=== PATIENT | male | born 1955 | race Caucasian/White ===

== ENCOUNTER 2019-10-23 06:07 | Day surgery (SDC) | payer MEDICARE, OTHER ==
[~2019-10-23 06:07] MED LIST: Dextrose 5%-0.45% NaCl 1,000 ML IV SCH; Sodium Chloride 0.9% 10 ML Syringe FLUSH PRN
[2019-10-23] MEDS ORDERED: Midazolam 1 MG/ML 2 ML SDV IV ONE ×7 (06:08→07:14)
[2019-10-23] MEDS ORDERED: fentaNYL 100 MCG/2 ML SDV IV ONE ×4 (06:08→07:16)
[2019-10-23] MEDS ORDERED: Midazolam 1 MG/ML 2 ML SDV ONE (06:38)
[2019-10-23] MEDS ORDERED: fentaNYL 100 MCG/2 ML SDV ONE (06:39)
--- NOTE | 2019-10-23 08:18 | OR ---
DATE: 10/23/2019 PROCEDURE: Total colonoscopy and multiple cold snare polypectomies. INSTRUMENT USED: PCF-H190DL Olympus video colonoscope. PREMEDICATIONS: Fentanyl 125 mcg intravenous, Versed 4 mg intravenous, nasal O2 cannula. The procedure was done under pulse oximetry, BP recording, and fish warden. INDICATION: The patient with previous colonic tubular adenoma. Surveillance colonoscopic examination is done for detection of any polypoid lesions and removal, endoscopic hemostasis therapy if needed. DESCRIPTION OF PROCEDURE: Initial rectal exam was unremarkable. Rigid anoscopy showed small internal hemorrhoids without bleeding form them. The colonoscope was passed with ease up to the ileocecal area. Photographs were taken of the cecum showing diminutive benign-appearing polyp, cold snare polypectomy was done, the tissue was retrieved and sent for histopathology. No bleeding was noted from any of the visualized areas at the commencement of the examination. The bowel preparation was found to be adequate, Sarah Ann scale 3 in all the regions, total score 9. No stricture. No vascular ectasia. No large isolated ulcerations seen. No evidence of diffuse inflammatory bowel disease in the form of friability, contact bleeding, or ulcerations. Probing the proximal sides of folds and flexures using adequate distention and clearing up the stool material, withdrawal of the scope was made. In the distal descending colon, 3 mm sized benign-appearing polyp was noted, cold snare polypectomy was done, the tissue was retrieved and sent for histopathology. No bleeding was noted from any of the visualized areas at the completion of examination. IMPRESSION: Diminutive colonic polyps. The patient tolerated the procedure well. [facility] /[id number]
== END 2019-10-23 09:40 | disposition home or self-care (01) ==
LOC: DL.ENDO 06:07
PROVIDERS: ATTEND Internal Medicine Gastroenterology
DX: Z12.11 Encounter for screening for malignant neoplasm of colon (principal); D12.4 Benign neoplasm of descending colon; D12.0 Benign neoplasm of cecum
CPT/HCPCS: 45385; J2250; J3010; J7042

== ENCOUNTER 2024-06-12 07:25 | Day surgery (SDC) | payer MEDICARE ==
[~2024-06-12 07:25] MED LIST changes: +Dexamethasone 4 MG/ML SDV ONE; -Dextrose 5%-0.45% NaCl 1,000 ML IV SCH; +Proparacaine 0.5% Ophth Soln 15 ML Bottle ONE; -Sodium Chloride 0.9% 10 ML Syringe FLUSH PRN
[2024-06-12] MEDS ORDERED: Ondansetron 4 MG/2 ML SDV IVPUSH PRN (07:30)
[2024-06-12] MEDS ORDERED: Acetaminophen 325 MG Tab PO PRN (07:30)
[2024-06-12] MEDS ORDERED: Acetaminophen/Codeine 300-30 MG Tab PO PRN (07:30)
[2024-06-12] MEDS: Proparacaine 0.5% Ophth Soln 15 ML Bottle EYELF ONE ×2 (07:44→08:50)
[2024-06-12] MEDS: Moxifloxacin 0.5% Ophth Soln 3 ML Bottle EYELF ONE (07:44)
[2024-06-12] MEDS: Povidone-Iodine 5% Sterile Ophth Soln 30 ML Bottle EYELF ONE ×2 (07:45→08:50)
[2024-06-12] MEDS: Phenylephrine 10% Ophth Soln 5 ML Bot EYELF ONE (07:46)
[2024-06-12] MEDS: Tropicamide 1% Ophth Soln 15 ML Bottle EYELF ONE (07:46)
[2024-06-12] MEDS: Timolol Maleate 0.5% Ophth Soln 5 ML Bottle EYELF ONE (07:47)
[2024-06-12] MEDS: Cataract Ophth Solution EYELF ONE (07:48)
[2024-06-12] MEDS: Sodium Chloride 0.9% 10 ML Syringe FLUSH PRN (07:50)
[2024-06-12] MEDS: Apraclonidine 0.5% Ophth Soln 5 ML Bot EYELF ONE (08:50)
[2024-06-12] MEDS: Proparacaine 0.5% Ophth Soln 15 ML Bottle EYERT ONE (08:50)
[2024-06-12] MEDS: VANCOmycin 500 MG SDV ONE (08:50)
[2024-06-12] MEDS: Diclofenac Sodium 0.1% Ophth Soln 5 ML Bottle EYERT ONE (08:50)
[2024-06-12] MEDS: Dexamethasone/Neomycin/Polymyxin B Ophth Oint 3.5 GM Tube EYELF ONE (08:50)
[2024-06-12] MEDS: VANCOmycin 500 MG SDV EYELF ONE (08:50)
[2024-06-12] MEDS: Apraclonidine 0.5% Ophth Soln 5 ML Bot EYERT ONE (08:50)
[2024-06-12] MEDS: Dexamethasone/Neomycin/Polymyxin B Ophth Oint 3.5 GM Tube EYERT ONE (08:50)
[2024-06-12] MEDS: Lidocaine 1% 30 ML SDV ONE (08:50)
[2024-06-12] MEDS: Diclofenac Sodium 0.1% Ophth Soln 5 ML Bottle EYELF ONE (08:50)
[2024-06-12] MEDS: Povidone-Iodine 5% Sterile Ophth Soln 30 ML Bottle EYERT ONE (08:50)
== END 2024-06-12 09:42 | disposition home or self-care (01) ==
LOC: DL.SDS 07:25
PROVIDERS: ATTEND Ophthalmology
DX: H25.812 Combined forms of age-related cataract, left eye (principal); I10 Essential (primary) hypertension; I25.10 Atherosclerotic heart disease of native coronary artery without angina pectoris; E78.5 Hyperlipidemia, unspecified; K21.9 Gastro-esophageal reflux disease without esophagitis; Z88.5 Allergy status to narcotic agent; Z88.8 Allergy status to other drugs, medicaments and biological substances; Z79.899 Other long term (current) drug therapy
CPT/HCPCS: A9270-GY; J3370; J3490